=== PATIENT | female | born 1995 | race Caucasian/White ===

== ENCOUNTER 2021-10-22 11:43 | Emergency (ER) | payer OTHER ==
[2021-10-22 12:06] VITALS: BP 144/99; PULSE 110; O2SAT 100
--- NOTE | 2021-10-22 12:08 | ERPHSYRPT ---
- History of Present Illness Time Seen by Provider: 10/22/21 12:02 Source: patient Exam Limitations: no limitations Physician History: 25-year-old female without any significant past medical history developed bruises on her left breast in the inner area. She does not remember how that happened but bruise was started spreading little bit and was little bit tender so she came to the emergency room to get it checked out. She denies any other injury or any other bleeding anywhere. Patient is otherwise healthy. Patient is not breast-feeding at all. Timing/Duration: day(s) (2-3 days) Severity: mild Associated Symptoms: denies symptoms Allergies/Adverse Reactions: erythromycin base Allergy (Verified 03/07/15 01:51) Home Medications: methylPREDNISolone acetate [Depo-Medrol] 0 mg IJ 03/07/15 [History] - Review of Systems Constitutional: No Symptoms Eyes: No Symptoms Ears, Nose, & Throat: No Symptoms Respiratory: No Symptoms Cardiac: No Symptoms Abdominal/Gastrointestinal: No Symptoms Genitourinary Symptoms: No Symptoms Musculoskeletal: No Symptoms Skin: Other (bruise on left breast medial side around areola) Neurological: No Symptoms Psychological: No Symptoms Endocrine: No Symptoms Hematologic/Lymphatic: No Symptoms Immunological/Allergic: No Symptoms - Past Medical History Pertinent Past Medical History: Yes Psycho-Social History: Anxiety - Past Surgical History Past Surgical History: Yes Gastrointestinal: Cholecystectomy Other Surgical History: ADNOIDS - Social History Smoking Status: Never smoker Exposure to second hand smoke: No Drug Use: none Patient Lives Alone: No - Physical Exam General Appearance: no apparent distress Eye Exam: PERRL/EOMI Ears, Nose, Throat Exam: normal ENT inspection Neck Exam: normal inspection Respiratory Exam: normal breath sounds Cardiovascular Exam: regular rate/rhythm Gastrointestinal/Abdomen Exam: soft Pelvic Exam: not done Rectal Exam: deferred Back Exam: normal inspection Extremity Exam: normal inspection Neurologic Exam: alert, oriented x 3 Skin Exam: normal color, dry, ecchymosis (left breast medial side around areola) Lymphatic Exam: No adenopathy SpO2 Interpretation: normal SpO2: 100 O2 Delivery: Room Air - Course Nursing assessment & vital signs reviewed: Yes - Progress Progress: unchanged Counseled pt/family regarding: diagnosis, need for follow-up - Departure Departure Disposition: Home Clinical Impression: Traumatic ecchymosis of left female breast Qualifiers: Encounter type: initial encounter Qualified Code(s): S20.02XA - Contusion of left breast, initial encounter Condition: Good Critical Care Time: No Referrals: PRANAY MÁRQUEZ NP [Primary Care Provider] - Follow Up with PCP/3 days Additional Instructions: You have some bruised area on your left breast. It might have happened probably due to some trivial trauma. Use Voltaren gel in affected area 3 4 times a day followed by ice packs. Initially that bruise might get bigger but then it will gradually resolve. If you started having a fever chills and sudden increase in swelling of your left breast contact your primary care physician for further intervention.
== END 2021-10-22 12:14 | disposition home or self-care (01) ==
LOC: ED 11:43
DX: S20.02XA Contusion of left breast, initial encounter (principal); X58.XXXA Exposure to other specified factors, initial encounter; Z79.52 Long term (current) use of systemic steroids
CPT/HCPCS: 99283

== ENCOUNTER 2021-10-29 17:16 | Emergency (ER) | payer OTHER ==
[2021-10-29 17:59] VITALS: O2SAT 98
--- NOTE | 2021-10-29 18:15 | ERPHSYRPT ---
- History of Present Illness Time Seen by Provider: 10/29/21 18:09 Source: patient Exam Limitations: no limitations Patient Subjective Stated Complaint: Pt states "I had an ultrasound on sunday on my L breast. They found a cyst. This morning it started hurting to where it was unbearable Triage Nursing Assessment: Pt alert and oriented x3, no bruising noted on L breast. pt states it is a constant 6/10 pain with little relief with medication Physician History: Patient is a 25-year-old female who presents with left breast pain. She has noted a area of soreness since she was kicked by her child in the left breast th ey did an ultrasound Sunday or 5 days ago which showed a benign cyst of 1.5 cm she awoke this morning with increased pain in the feels that it is increased in size. Timing/Duration: today Severity: moderate Modifying Factors: Improves With: nothing Associated Symptoms: denies symptoms Allergies/Adverse Reactions: erythromycin base Allergy (Verified 03/07/15 01:51) Home Medications: methylPREDNISolone acetate [Depo-Medrol] 0 mg IJ 03/07/15 [History] Hx Tetanus, Diphtheria Vaccination/Date Given: Yes Hx Influenza Vaccination/Date Given: Yes Hx Pneumococcal Vaccination/Date Given: No Immunizations Up to Date: Yes Travel Risk - International Travel Have you traveled outside of the country in past 3 weeks: No - Coronavirus Screening Are you exhibiting any of the following symptoms?: No Close contact with a COVID-19 positive Pt in past 14-21 Days: No - Vaccine Status Have you recieved a Covid-19 vaccination: No - Review of Systems Constitutional: No Fever, No Chills Eyes: No Symptoms Ears, Nose, & Throat: No Symptoms Respiratory: No Cough, No Dyspnea Cardiac: No Chest Pain, No Edema, No Syncope Abdominal/Gastrointestinal: No Abdominal Pain, No Nausea, No Vomiting, No Diarrhea Genitourinary Symptoms: No Dysuria Musculoskeletal: No Back Pain, No Neck Pain Skin: No Rash Neurological: No Dizziness, No Focal Weakness, No Sensory Changes Psychological: No Symptoms Endocrine: No Symptoms All Other Systems: Reviewed and Negative - Past Medical History Pertinent Past Medical History: Yes Psycho-Social History: Anxiety - Past Surgical History Past Surgical History: Yes Gastrointestinal: Cholecystectomy Other Surgical History: ADNOIDS - Social History Smoking Status: Never smoker Exposure to second hand smoke: No Drug Use: none Patient Lives Alone: No - Female History Hx Last Menstrual Period: on period now Hx Now: No - Nursing Vital Signs Nursing Vital Signs: Initial Vital Signs Temperature 98.1 F 10/29/21 17:51 Pulse Rate 102 H 10/29/21 17:51 Respiratory Rate 16 10/29/21 17:51 Blood Pressure 127/81 10/29/21 17:51 O2 Sat by Pulse Oximetry 98 10/29/21 17:51 Pain Scale Pain Intensity 6 - Physical Exam General Appearance: mild distress Eye Exam: PERRL/EOMI, eyes nml inspection Ears, Nose, Throat Exam: normal ENT inspection, TMs normal, pharynx normal Neck Exam: normal inspection, non-tender, supple, full range of motion Respiratory Exam: airway intact, No respiratory distress Skin Exam: other (Patient was examined there is a small approximately 1.5 cm cyst in the area of discomfort it is not fixed it certainly feels benign.) SpO2: 98 - Course Nursing assessment & vital signs reviewed: Yes - Progress Progress: unchanged Progress Note: 10/29/21 18:11 Case was discussed with the patient she was instructed that we do not have ultrasound available on the weekend and she will be returned on Sunday for another ultrasound of that area to make sure that it is unchanged. - Departure Departure Disposition: Home Clinical Impression: Fibrocystic disease of left breast Condition: Stable Critical Care Time: No Referrals: PRANAY MÁRQUEZ NP [Primary Care Provider] - Follow up/PCP as directed Instructions: Fibrocystic Breast Changes (DC) Prescriptions: Hydrocodone/Acetaminophen [Hydrocodone-Acetamin 5-325 mg] 1 tab PO Q6HPRN PRN 3 Days #12 tablet MDD 4 PRN Reason: Pain
[2021-10-29 18:31] VITALS: BP 133/85; PULSE 100
== END 2021-10-29 18:31 | disposition home or self-care (01) ==
LOC: ED 17:16
DX: N60.12 Diffuse cystic mastopathy of left breast (principal); Z79.52 Long term (current) use of systemic steroids; Z79.891 Long term (current) use of opiate analgesic
CPT/HCPCS: 99283

== ENCOUNTER 2021-10-31 08:22 | Emergency (ER) | payer OTHER ==
--- NOTE | 2021-10-31 08:57 | ERPHSYRPT ---
- History of Present Illness Source: patient Exam Limitations: no limitations Patient Subjective Stated Complaint: Abscess to left breast Triage Nursing Assessment: Patient ambulated back to ED and transferred self to bed. Patient A+O X3. Patient's skin pink, warm and dry. Patient complains of left abscess to breast. Patient states she had an ultrasound last week of it. Patient has had this for 3 weeks. Patient complains of constant throbbing pain 6/10. Raised soft area noted to left breast. No redness noted. Physician History: 25 yo wf w L breast cyst vs intramammary nodule per US on 10/25/21. US ordered by [employer], and pt returns to ER for second visit for same problem. Pt states that she has pain and wants problem resolved. She states cyst developed after a breast contusion w car door. Timing/Duration: other (2 wks) Modifying Factors: Improves With: movement. Worsens With: cold therapy, eating, immobilization, medication, rest, acetaminophen, ibuprofen Associated Symptoms: No nausea, No vomiting, No abdominal pain, No shortness of breath, No heartburn, No diaphoresis, No cough, No chills, No chest pain, No fever, No headaches, No loss of appetite, No malaise, No rash, No syncope, No seizure, No weakness Allergies/Adverse Reactions: erythromycin base Allergy (Verified 10/31/21 08:29) Home Medications: methylPREDNISolone acetate [Depo-Medrol] 0 mg IJ WEEKLY 03/07/15 [History] Hx Tetanus, Diphtheria Vaccination/Date Given: Yes Hx Influenza Vaccination/Date Given: Yes Hx Pneumococcal Vaccination/Date Given: No Immunizations Up to Date: Yes Travel Risk - International Travel Have you traveled outside of the country in past 3 weeks: No - Coronavirus Screening Are you exhibiting any of the following symptoms?: No - Vaccine Status Have you recieved a Covid-19 vaccination: No - Review of Systems Constitutional: No Symptoms Eyes: No Symptoms Ears, Nose, & Throat: No Symptoms Respiratory: No Symptoms Cardiac: No Symptoms Abdominal/Gastrointestinal: No Symptoms Genitourinary Symptoms: No Symptoms Musculoskeletal: No Symptoms Skin: No Symptoms, Other (L breast mass) Neurological: No Symptoms Psychological: No Symptoms Endocrine: No Symptoms Hematologic/Lymphatic: No Symptoms Immunological/Allergic: No Symptoms - Past Medical History Pertinent Past Medical History: Yes Psycho-Social History: Anxiety - Past Surgical History Past Surgical History: Yes Gastrointestinal: Cholecystectomy Other Surgical History: ADNOIDS - Social History Smoking Status: Never smoker Exposure to second hand smoke: No Drug Use: none Patient Lives Alone: No Significant Family History: no pertinent family hx - Female History Hx Last Menstrual Period: yesterday Hx Now: No - Nursing Vital Signs Nursing Vital Signs: Initial Vital Signs Temperature 98.3 F 10/31/21 08:32 Pulse Rate 108 H 10/31/21 08:32 Respiratory Rate 18 10/31/21 08:32 Blood Pressure 136/105 10/31/21 08:32 O2 Sat by Pulse Oximetry 100 10/31/21 08:32 Pain Scale Pain Intensity 5 Hypertensive/Tachycardic - Physical Exam General Appearance: no apparent distress, anxiety Eye Exam: PERRL/EOMI, eyes nml inspection Ears, Nose, Throat Exam: normal ENT inspection, TMs normal, pharynx normal, moist mucous membranes Neck Exam: normal inspection, non-tender, supple, full range of motion, No meningismus, No mass, No Brudzinski, No Kernig's Respiratory Exam: normal breath sounds, lungs clear, airway intact, No respiratory distress Cardiovascular Exam: tachycardia, capillary refill <2 sec, No murmur Gastrointestinal/Abdomen Exam: soft, normal bowel sounds, No tenderness Back Exam: normal inspection, normal range of motion Extremity Exam: normal inspection, normal range of motion Neurologic Exam: alert, oriented x 3, cooperative, office assistance II-XII nml as tested, normal mood/affect, nml cerebellar function, nml station & gait, sensation nml, No motor deficits, No sensory deficit Skin Exam: normal color, warm, dry, other (L breast/No erythema/Small area TTP medial to L nipple/No nipple discharge) SpO2 Interpretation: normal SpO2: 100 O2 Delivery: Room Air - Course Nursing assessment & vital signs reviewed: Yes - Progress Progress Note: 10/31/21 09:[address] Pardo 11/01/21 11:15 Counseled pt/family regarding: diagnosis, need for follow-up - Departure Departure Disposition: Home Clinical Impression: Breast cyst Condition: Stable Critical Care Time: No Referrals: PRANAY MÁRQUEZ NP [Primary Care Provider] - Follow up/PCP as directed Instructions: Common Breast Problems Additional Instructions: Dr. Pardo 11:15 11/01/21 Continue w pain meds Supportive Bra Warm compresses
[2021-10-31 09:35] VITALS: BP 135/94; PULSE 78
[2021-10-31 14:00] VITALS: O2SAT 100
== END 2021-10-31 09:49 | disposition home or self-care (01) ==
LOC: ED 08:22
DX: N60.02 Solitary cyst of left breast (principal); Z79.52 Long term (current) use of systemic steroids
CPT/HCPCS: 99283

== ENCOUNTER 2022-06-07 08:21 | Emergency (ER) | payer OTHER ==
[2022-06-07] MEDS ORDERED: EPIPEN IM ONE (08:44)
[2022-06-07] MEDS ORDERED: DECADRON 10MG INJ. PO ONE (08:45)
[2022-06-07] MEDS ORDERED: DECADRON 10MG INJ. ONE (08:48)
[2022-06-07] MEDS ORDERED: EPINEPHRINE ABBOJECT 1 MG/10 ML ONE (08:52)
--- NOTE | 2022-06-07 09:02 | ERPHSYRPT ---
- History of Present Illness Time Seen by Provider: 06/07/22 08:38 Source: patient Exam Limitations: no limitations Patient Subjective Stated Complaint: C/O Rash to back that started late last night or early this morning. Triage Nursing Assessment: Patient ambulated back to ED without difficulties. No SOB. A dry cough is noted. Patient with a raise, red, welted rash to back. Physician History: Urticarial rash over patient's back and buttocks, upper thighs. No other falls or trauma. No fever no chills. No recent vaccinations. Patient states that she woke up with these. She has taken Benadryl at home. She did not feel like this helped. Somewhat scratchy throat. Otherwise no signs of oral or edema swelling. No wheezes, difficulty breathing. Timing/Duration: today Severity: mild Modifying Factors: Improves With: medication Associated Symptoms: other (Itchiness) Allergies/Adverse Reactions: erythromycin base Allergy (Verified 06/07/22 08:34) Home Medications: Ketoconazole 1 06/07/22 [History] Hx Tetanus, Diphtheria Vaccination/Date Given: Yes Hx Influenza Vaccination/Date Given: No Hx Pneumococcal Vaccination/Date Given: No Immunizations Up to Date: Yes Travel Risk - International Travel Have you traveled outside of the country in past 3 weeks: No - Coronavirus Screening Are you exhibiting any of the following symptoms?: Yes Symptoms: Cough: New Onset Close contact with a COVID-19 positive Pt in past 14-21 Days: No - Vaccine Status Have you recieved a Covid-19 vaccination: Yes Director Of Communications: Moderna - Vaccination Dates Date of 2cond Vaccination (if applicable): Not due yet - Review of Systems Constitutional: No Fever, No Chills Eyes: No Symptoms Ears, Nose, & Throat: No Symptoms Respiratory: No Cough, No Dyspnea Cardiac: No Chest Pain, No Edema, No Syncope Abdominal/Gastrointestinal: No Abdominal Pain, No Nausea, No Vomiting, No Diarrhea Genitourinary Symptoms: No Dysuria Musculoskeletal: No Back Pain, No Neck Pain Skin: Other (Urticarial rash over the back), No Rash Neurological: No Dizziness, No Focal Weakness, No Sensory Changes Psychological: No Symptoms Endocrine: No Symptoms All Other Systems: Reviewed and Negative - Past Medical History Pertinent Past Medical History: Yes GI Medical History: Gallbladder Disease Psycho-Social History: Anxiety, Depression Other Medical History: Dermatitis - Past Surgical History Past Surgical History: Yes Gastrointestinal: Cholecystectomy Other Surgical History: ADNOIDS - Social History Smoking Status: Never smoker Exposure to second hand smoke: No Drug Use: none Patient Lives Alone: No Significant Family History: no pertinent family hx - Female History Hx Now: No - Nursing Vital Signs Nursing Vital Signs: Initial Vital Signs Temperature 97.8 F 06/07/22 08:36 Pulse Rate 127 H 06/07/22 08:36 Respiratory Rate 20 06/07/22 08:36 Blood Pressure 157/96 06/07/22 08:36 O2 Sat by Pulse Oximetry 97 06/07/22 08:36 Pain Scale Pain Intensity 4 - Physical Exam General Appearance: no apparent distress, alert Eye Exam: PERRL/EOMI, eyes nml inspection Ears, Nose, Throat Exam: normal ENT inspection, TMs normal, pharynx normal, moist mucous membranes Neck Exam: normal inspection, non-tender, supple, full range of motion Respiratory Exam: normal breath sounds, lungs clear, No respiratory distress Cardiovascular Exam: regular rate/rhythm, normal heart sounds, normal peripheral pulses Gastrointestinal/Abdomen Exam: soft, normal bowel sounds, No tenderness, No mass Back Exam: normal inspection, normal range of motion, No CVA tenderness, No vertebral tenderness Extremity Exam: normal inspection, normal range of motion, pelvis stable Neurologic Exam: alert, oriented x 3, cooperative, normal mood/affect, nml cerebellar function, nml station & gait, sensation nml, No motor deficits Skin Exam: normal color, warm, dry, other (Urticarial rash upper back, and buttocks. Blanchable.), No rash Lymphatic Exam: No adenopathy SpO2: 97 Comments: 06/07/22 09:09 No trismus, able to fully extend neck, normal range of motion of neck without pain. Uvula is midline, no swelling of the mouth, noraml oropharynx. No exudate, no signs of meningitis, no floor of mouth swelling, no hot potato voice on exam. No buccal swelling, no gum bleeding, no signs of tooth abscess/infection. - Course Nursing assessment & vital signs reviewed: Yes Ordered Tests: Active Orders 24 hr Category Date Time Status HCG,QUALITATIVE URINE Stat Lab 06/07/22 10:10 Completed Medication Summary Discontinued Medications Generic Name Dose Route Start Last Admin Trade Name Freq PRN Reason Stop Dose Admin Hydrocodone Bitart/Acetaminophen 1 tab 06/07/22 09:49 Hydrocodone/Apap 5/325 Mg Tablet PO 06/07/22 09:50 STAT ONE Dexamethasone Sodium Phosphate 8 mg 06/07/22 08:45 06/07/22 08:49 Dexamethasone Sod Phosphate 10 Mg/Ml PO 06/07/22 08:46 8 mg STAT ONE Administration Dexamethasone Sodium Phosphate Confirm 06/07/22 08:48 Dexamethasone Sod Phosphate 10 Mg/Ml Administered 06/07/22 08:49 Dose 10 mg .ROUTE .STK-MED ONE Epinephrine HCl 0 mg 06/07/22 08:44 06/07/22 08:58 Epinephrine 0.3 Mg/Syr Epi-Pen IM 06/07/22 08:45 0.3 mg ONCE ONE Administration Epinephrine HCl Confirm 06/07/22 08:52 Epinephrine 0.1 Mg/Ml 10 Ml Abboject Administered 06/07/22 08:53 Dose 1 mg .ROUTE .STK-MED ONE Lab/Rad Data: Laboratory Results 06/07/22 Range/Units 10:10 Urine HCG, Qual NEGATIVE (Negative) - Progress Progress: improved Progress Note: 06/07/22 09:09 Given scratchy throat we will try IM epi, oral steroids here. Patient is already taken Benadryl. Continue to monitor closely. 10 09:49 Patient feeling improved with IM epinephrine here. Patient states that she does have some pain associated with this. We will give her an oral dorsal with [place]. She is driving home. We will plan on discharging home on a short course of steroids. She may return here sooner for any new or changing symptoms. 06/07/22 10:33 test is negative. Therefore we will give some [place] here. Plan for prednisone home. Continue close observation in the emergency department. - Departure Clinical Impression: Urticarial rash Condition: Stable Critical Care Time: No Referrals: PRANAY MÁRQUEZ NP [Primary Care Provider] - Follow up/PCP as directed Instructions: Prednisone, Skin Rash ED Prescriptions: Prednisone 10 mg [Deltasone 10 mg] 40 mg PO DAILY 5 Days #100 tablet
[2022-06-07] MEDS ORDERED: NORCO 5/325 MG PO ONE (09:49)
[2022-06-07 10:14] VITALS: BP 150/90
[2022-06-07] MEDS ORDERED: NORCO 5/325 MG ONE (10:33)
[2022-06-07 11:00] VITALS: PULSE 94; O2SAT 100
== END 2022-06-07 10:50 | disposition home or self-care (01) ==
LOC: ED 08:21
DX: L50.9 Urticaria, unspecified (principal); Z79.52 Long term (current) use of systemic steroids
CPT/HCPCS: 81025; 96372; 99283; J0170; J0171; J1100; A9270-GY